=== PATIENT | male | born 2000 | race African-American/Black ===

== ENCOUNTER 2024-04-16 05:33 | Emergency (ER) | payer SELFPAY ==
[2024-04-16 05:36] VITALS: BP 156/100; PULSE 105; RESP 30; TEMP 36.8; O2SAT 95
[2024-04-16 05:43] VITALS: RESP 14
--- NOTE | 2024-04-16 05:45 | DI.RAD_ITS ---
Exam(s) XR CHEST 2V PA LATERAL EXAM: XR CHEST 2V PA LATERAL CLINICAL HISTORY: cough, SOB. TECHNIQUE: 2D digital imaging was performed. COMPARISON: No exams were available for comparison FINDINGS: 2 views: Heart size is normal. The mediastinum is not widened. Lungs are clear. No infiltrates nor pleural effusions. IMPRESSION: No acute pulmonary findings. DATA REPOSITORY: RADIATION DOSE DELIVERED:
[2024-04-16] MEDS: Albuterol/Ipratropium 3 ML UPD VIAL (05:46)
--- NOTE | 2024-04-16 05:46 | ED.GENADUL_ITS ---
Discharge Plan Disposition Patient Disposition: Home Condition: Good Discharge Details Clinical Impression: Asthma exacerbation ED Provider: Jamie Han [place] Meds and New Rx's Prescriptions: New prednisone 20 mg tablet 40 mg PO DAILY Qty: 8 0RF Continued albuterol sulfate 90 mcg/actuation HFA aerosol inhaler 2 inh inhalation Q4H PRNQty: 8.5 0RF Discharge Instructions Instructions: Asthma, Adult ED Additional Instructions: You were seen for an asthma exacerbation likely triggered by the different climate and allergen exposures here in [place] compared to [place]. You improved with a DuoNeb treatment. You should continue your albuterol inhaler 2 puffs every 4-6 hours as needed. We have started you on prednisone which will hopefully quiet things down. You should follow-up with primary care when you return to [place] after your visit here. Return to the ED if you develop fever, increasing shortness of breath, chest pain, other concerns. HPI General Mode of arrival: ambulatory . Date/Time Provider Initiated Documentation: 04/16/24 05:46 . Limitations to Documentation: no limitations . Information obtained by: patient and RN notes reviewed . HPI Narrative: Patient presents to ED with complaint of cough, shortness of breath, wheezing. Patient is visiting from [place]. Been here for a little over a week now. Few days after arriving here began to have symptoms consistent with his asthma. Has been using his albuterol inhaler but continues to have increased wheezing and cough. Arrives here this morning short of breath. Denies any fever or URI type symptoms otherwise. Has some chest pain with cough. Has been on steroids and has been hospitalized for asthma in the past. He has never been intubated. He will be returning back to [place] later this month. Related Data Home Medications ?Medication ?Instructions ?Recorded ?Confirmed albuterol sulfate 90 mcg/actuation 2 inh inhalation Q4H PRN #8.5 grams 04/16/24 aerosol inhaler prednisone 20 mg tablet 40 mg (2 x 20 mg) PO DAILY #8 tabs 04/16/24 Previous Rx's ?Medication ?Instructions ?Recorded albuterol sulfate 90 mcg/actuation 2 inh inhalation Q4H PRN #8.5 grams 04/16/24 aerosol inhaler prednisone 20 mg tablet 40 mg (2 x 20 mg) PO DAILY #8 tabs 04/16/24 Allergies Allergy/AdvReac Type Severity Reaction Status Date / Time No Known Allergies Allergy Unverified 04/16/24 05:42 General Stated Complaint: SOB CARLO: 3 Review of Systems Narrative: Per HPI Exam Narrative Exam Narrative: Const: WDWN male in NAD. VS per triage. HEENT: NC/AT. Normal facial exam. Neck: Supple. Trachea midline. Lungs: Normal respiratory effort. Few scattered wheezes and rhonchi on my exam after having been on Duoneb. Cor: RRR without murmur. Good radial pulses. Neuro: A+O x 3. Normal speech, mentation, gait. Cranial nerves II - XII grossly intact. No gross motor or sensory deficit. Ext: No C/C/E. Course Vital Signs Vital signs: Vital Signs Temperature 98.2 F 04/16/24 05:36 Pulse 105 H 04/16/24 05:36 Respiratory Rate 30 H 04/16/24 05:36 Blood Pressure 156/100 H 04/16/24 05:36 Pulse Oximetry 95 04/16/24 05:36 Temperature 98.2 F 04/16/24 05:36 Pulse 105 H 04/16/24 05:36 Respiratory Rate 14 04/16/24 05:43 Respiratory Effort Short of Breath 04/16/24 05:43 Respiratory Depth Normal 04/16/24 05:43 Respiratory Pattern Normal 04/16/24 05:43 Blood Pressure 156/100 H 04/16/24 05:36 Pulse Oximetry 95 04/16/24 05:36 Oxygen Delivery Method Room Air 04/16/24 05:36 Oxygen Flow Rate 0 04/16/24 05:36 Pain Level 0 04/16/24 05:36 Medical Decision Making Patient presenting to ED with cough, wheezing, shortness of breath. Per his nu rse he was tachypneic and had diffuse wheezing. He was started on a DuoNeb. Patient seen by me after the DuoNeb was almost completed. Reports feeling much better after the DuoNeb. Still has a few scattered wheezes. Likely has asthma exacerbation triggered by change in climate and allergen exposures. Will burst with prednisone. Has some rhonchi, denies fever, does report some productive sputum. Will obtain chest x-ray though my suspicion for pneumonia/infection is low. Patient's chest x-ray per my read with no acute cardiopulmonary process. Will refill his albuterol inhaler as well as provide prescription for prednisone. Will need to follow-up with primary care when he returns to [place]. Return precautions provided. Imaging Data Radiologic Study: Attestation: I personally reviewed and interpreted this imaging study as follows: Imaging: X-Ray My impression: Chest x-ray with no acute cardiopulmonary process PFSH All Active Problems (Updated 04/16/24 @ 06:23 by Jamie Han MD) Asthma exacerbation (Acute) Medical History Asthma Social History Smoking risk assessment performed?: No
--- NOTE | 2024-04-16 05:47 | NUR.NOTE ---
Pt is visiting from out of town, stated he has used his inhaler a few times with no relief, he is tachypneic with diminished lower lobes and ETCO2 shark fin wave form. CHAVEZ
[2024-04-16] MEDS: predniSONE 20 MG TAB 60 MG PO (06:00)
[2024-04-16 06:35] VITALS: BP 140/88; PULSE 90; RESP 20; O2SAT 98
--- NOTE | 2024-04-16 08:56 | DI.VRAD_ITS ---
PROCEDURE INFORMATION: Exam: XR Chest Exam date and time: 04/16/2024 6:10 AM Age: 23 years old Clinical indication: Cough and shortness of breath; Patient HX: Cough, SOB; Additional info: HX asthma TECHNIQUE: Imaging protocol: Radiologic exam of the chest. Views: 2 views. COMPARISON: No relevant prior studies available. FINDINGS: Lungs: Mild, central interstitial opacities without focal consolidation. Pleural spaces: No pleural effusion. No pneumothorax. Heart/Mediastinum: No cardiomegaly. Bones/joints: Unremarkable. IMPRESSION: Mild perihilar interstitial opacities, can be seen with atypical/viral infection or reactive airway disease. Dictated and Authenticated by: Lucy Lange MD. Ordering:DANII Ayala MD
== END 2024-04-16 06:35 | disposition home or self-care (01) ==
LOC: ER 06:47
PROVIDERS: Emergency Provider Emergency Medicine
DX: J45.901 Unspecified asthma with (acute) exacerbation (principal)
CPT/HCPCS: 99284; 71046; 99283; J7512; J7620